=== PATIENT | male | born 1955 | race Caucasian/White ===

== ENCOUNTER 2024-01-05 02:51 | Inpatient (IN) | payer MEDICARE, MEDICAID ==
[~2024-01-05] VITALS: Ht 172.7 cm; Wt 94.3 kg
[2024-01-05 03:29] LABS: HEMATOCRIT 35.5 % (42.0-52.0); MEAN CORPUSCULAR HEMOGLOBIN 22.2 pg (28.0-32.0); MEAN CORPUSCULAR HGB CONC 31.1 g/dL (31.0-37.0); MEAN CORPUSCULAR VOLUME 71.3 fL (80.0-94.0); PLATELET 364 x1000/uL (130-400); RED BLOOD CELL COUNT 4.98 mill/uL (4.7-6.1); RED CELL DISTRIBUTION WIDTH 18.4 % (11.6-14.6); WHITE BLOOD COUNT 7.5 x1000/uL (4.5-11.0)
[2024-01-05 03:33] LABS: CHLORIDE 107 mEq/L (98-107); POTASSIUM 4.1 mEq/L (3.5-5.1); SODIUM 138 mEq/L (136-145)
[2024-01-05 03:34] LABS: CALCIUM 8.7 mg/dL (8.7-10.4); CARBON DIOXIDE 25 mEq/L (21-32)
[2024-01-05 03:39] LABS: CREATININE 1.1 mg/dL (0.6-1.3); GLUCOSE 143 mg/dL (70-105); UREA NITROGEN BLOOD 12 mg/dL (9-23)
[2024-01-05 03:41] LABS: ALANINE AMINOTRANSFERASE 16 IU/L (10-49); ALBUMIN 4.6 g/dL (3.2-4.8); ASPARTATE AMINOTRANSFERASE 23 IU/L (<34); BILIRUBIN TOTAL 0.7 mg/dL (0.1-1.0); PROTEIN TOTAL 7.5 g/dL (6.0-8.3)
[2024-01-05 04:00] LABS: TROPONIN I HIGH SENSITIVITY 480 ng/L (3.0-53)
[2024-01-05] MEDS: ASPIRIN 325MG EC TABLET PO ONE (04:43)
[2024-01-05 05:34] LABS: PARTIAL THROMBOPLASTIN TIME 28.8 sec (23.4-31.0); PROTHROMBIN TIME 11.6 sec (9.6-11.0)
[2024-01-05] MEDS: ENOXAPARIN 80MG/0.8ML SYR SUBCUT ONE (05:40)
[2024-01-05 06:05] LABS: CLARITY URINE CLEAR (CLEAR); COLOR URINE YELLOW (YELLOW); GLUCOSE URINE NEGATIVE (NEGATIVE); KETONES URINE NEGATIVE (NEGATIVE); LEUKOCYTE ESTERASE URINE NEGATIVE (NEGATIVE); NITRITE URINE NEGATIVE (NEGATIVE); OCCULT BLOOD URINE NEGATIVE (NEGATIVE); PROTEIN URINE 1+ (NEGATIVE); SPECIFIC GRAVITY URINE 1.016 (1.005-1.030); UROBILINOGEN URINE 0.2 E.U./dL (0.2-1.0)
[2024-01-05 06:37] LABS: BACTERIA URINE NONE SEEN; RBC URINE 0-2 /hpf (0-2); SQUAMOUS EPITHELIAL CELL URINE NONE SEEN /lpf (RARE/1+); WBC URINE 0-2 /hpf (0-2)
[2024-01-05 08:00] VITALS: BP 187/109; PULSE 61; RESP 18; TEMP 96.1
[2024-01-05 08:09] LABS: TROPONIN I HIGH SENSITIVITY 1007 ng/L (3.0-53)
[2024-01-05] MEDS ORDERED: [UNRECOGNIZED DRUG - OTHER] (08:17)
[2024-01-05] MEDS ORDERED: IRBE300T25 PO (08:17)
[2024-01-05] MEDS ORDERED: NITROGLYCERIN 0.4MG TABLET SL SL PRN (09:00)
[2024-01-05] MEDS ORDERED: ZOLPIDEM TARTRATE 5MG TABLET PO PRN (09:00)
[2024-01-05] MEDS ORDERED: TRAMADOL 50MG TABLET PO PRN (09:00)
[2024-01-05] MEDS: FAMOTIDINE 20MG TABLET PO SCH (09:18)
[2024-01-05] MEDS: LISINOPRIL 20MG TABLET PO SCH (09:18)
[2024-01-05] MEDS: AMLODIPINE 10MG TABLET PO SCH (09:18)
[2024-01-05 10:08] VITALS: BP 170/85; PULSE 51; RESP 18; TEMP 97.7
[2024-01-05 11:08] LABS: TROPONIN I HIGH SENSITIVITY 1658 ng/L (3.0-53)
[2024-01-05] MEDS: ASPIRIN 81MG TABLET PO SCH (11:13)
[2024-01-05 12:00] VITALS: BP 143/80; PULSE 54; RESP 18; TEMP 98.1
[2024-01-05] MEDS ORDERED: ACETAMINOPHEN 325MG TABLET PO PRN ×2 (12:00)
[2024-01-05] MEDS ORDERED: ONDANSETRON HCL 4MG/2ML INJ IV PRN (12:00)
[2024-01-05] MEDS ORDERED: CLONIDINE 0.1MG TABLET PO PRN (12:00)
[2024-01-05] MEDS ORDERED: GUAIFENESIN 200MG/10ML SUGAR FREE UDC PO PRN (12:00)
[2024-01-05] MEDS ORDERED: DEXTROSE 50% WATER 50ML SYRINGE IV PRN (12:15)
[2024-01-05 12:22] LABS: IRON 31 ug/dL (65-175)
[2024-01-05 12:25] LABS: TOTAL IRON BINDING CAPACITY 306 ug/dl (250-425)
[2024-01-05] MEDS: BLOOD SUGAR DIAGNOSTIC STRIP TEST SCH (12:28)
[2024-01-05 12:29] LABS: FERRITIN 7 ng/mL (22-322); FOLIC ACID (FOLATE) SERUM 12.78 ng/mL (>5.38)
[2024-01-05] MEDS: INSULIN LISPRO 100 UNITS/ML SUBCUT SCH (12:29)
[2024-01-05 12:30] LABS: VITAMIN B12 SERUM 452 pg/mL (211-911)
[2024-01-05] MEDS: ENOXAPARIN 100MG/ML SYR SUBCUT SCH (15:33)
[2024-01-05 16:00] VITALS: BP 127/76; PULSE 61; RESP 18; TEMP 97.7
[2024-01-05 17:14] LABS: CREATINE KINASE 167 IU/L (46-171)
[2024-01-05 17:41] LABS: TROPONIN I HIGH SENSITIVITY 2153 ng/L (3.0-53)
[2024-01-05 20:00] VITALS: BP 138/78; PULSE 52; RESP 18; TEMP 98.2
[2024-01-05] MEDS ORDERED: *PATIENT'S OWN MEDICATION STORAGE XX SCH (20:00)
[2024-01-05] MEDS: ATORVASTATIN CALCIUM 40MG TABLET PO SCH (21:07)
[2024-01-05 22:17] LABS: TROPONIN I HIGH SENSITIVITY 2040 ng/L (3.0-53)
[2024-01-06] VITALS: BP 120/80; PULSE 58; RESP 18; TEMP 98.2
[2024-01-06 04:00] VITALS: BP 144/88; PULSE 59; RESP 18; TEMP 98
[2024-01-06 06:30] LABS: CARBON DIOXIDE 24 mEq/L (21-32); CHLORIDE 108 mEq/L (98-107); POTASSIUM 3.9 mEq/L (3.5-5.1); SODIUM 139 mEq/L (136-145)
[2024-01-06 06:31] LABS: CALCIUM 8.7 mg/dL (8.7-10.4)
[2024-01-06 06:35] LABS: CREATININE 0.9 mg/dL (0.6-1.3); GLUCOSE 89 mg/dL (70-105)
[2024-01-06 06:36] LABS: TRIGLYCERIDE 175 mg/dL (0-150); UREA NITROGEN BLOOD 12 mg/dL (9-23)
[2024-01-06 06:37] LABS: ALANINE AMINOTRANSFERASE 18 IU/L (10-49); ALBUMIN 4.4 g/dL (3.2-4.8); ASPARTATE AMINOTRANSFERASE 23 IU/L (<34); LDL CHOLESTEROL 150 mg/dL (5-100)
[2024-01-06 06:38] LABS: BILIRUBIN TOTAL 0.9 mg/dL (0.1-1.0); CHOLESTEROL 184 mg/dL (<200); HDL CHOLESTEROL 36 mg/dL (>55); PHOSPHORUS 2.4 mg/dL (2.5-4.9); PROTEIN TOTAL 7.6 g/dL (6.0-8.3)
[2024-01-06 06:40] LABS: T4 FREE 1.08 ng/dL (0.89-1.76)
[2024-01-06 06:53] LABS: DIFFERENTIAL COMMENT 0; EOSINOPHILS % 3.6 % (0.0-5.0); HEMATOCRIT. 34.5 % (42.0-52.0); HEMOGLOBIN. 10.9 g/dL (14.0-18.0); LYMPHOCYTES % 50.8 % (20.0-50.0); MEAN CORPUSCULAR HEMOGLOBIN 22.8 pg (28.0-32.0); MEAN CORPUSCULAR HGB CONC 31.7 g/dL (31.0-37.0); MEAN CORPUSCULAR VOLUME 71.8 fL (80.0-94.0); MEAN PLATELET VOLUME 7.8 fl (7.4-10.4); MONOCYTES % 8.3 % (2.0-8.0); NEUTROPHILS % 36.3 % (40.0-76.0); PLATELET 329 x1000/uL (130-400); RED CELL DISTRIBUTION WIDTH 18.1 % (11.6-14.6)
[2024-01-06 07:58] LABS: BG CARBOXYHEMOGLOBIN 0.3 % (0.5-1.5); BG DEOXYHEMOGLOBIN 3.6 % (0.0-5.0); BG HCO3 ACT 22.3 mmol/L (22.0-26.0); BG METHEMOGLOBIN 0.1 % (0.0-1.5); BG OXYGEN SATURATION 96.4 % (92.0-98.5); BG PCO2 33.2 mmHg (35.0-45.0); BG PH 7.446 (7.350-7.450); BG SAMPLE SITE RIGHT RADIAL; BG TOTAL HEMOGLOBIN 12.9 g/dL (12.0-18.0); BG VENT MODE ROOM AIR
[2024-01-06 08:00] VITALS: BP 143/87; PULSE 50; RESP 18; TEMP 98.5
[2024-01-06] MEDS ORDERED: HEPARIN 1000 UNITS/ML 10ML ONE (08:06)
[2024-01-06] MEDS ORDERED: LIDOCAINE HCL 1% 20ML VIAL (Pyxis) INJ ONE (08:06)
[2024-01-06] MEDS ORDERED: IODIXANOL 320MG/ML 100 ML BOTTLE IV ONE (08:06)
[2024-01-06] MEDS ORDERED: VERAPAMIL HCL 2.5 MG/1 ML 2ML VIAL IV ONE (08:22)
[2024-01-06] MEDS ORDERED: DIPHENHYDRAMINE 50MG/ML VIAL ONE (08:46)
[2024-01-06] MEDS ORDERED: FENTANYL CITRATE/PF 50MCG/ML 2ML VIAL ONE (08:46)
[2024-01-06] MEDS ORDERED: MIDAZOLAM HCL 2 MG/2 ML VIAL ONE (08:47)
[2024-01-06] MEDS ORDERED: HYDRALAZINE 20MG/ML VIAL ONE (09:32)
[2024-01-06] MEDS ORDERED: ATROPINE SULFATE 1MG/10ML SYR IV PRN (10:15)
[2024-01-06] MEDS ORDERED: ACETAMINOPHEN 325MG TABLET PO PRN ×2 (10:15→12:00)
[2024-01-06] MEDS: FERROUS SULFATE 325MG TABLET PO SCH (12:40)
[2024-01-06 14:18] VITALS: BP 155/82; PULSE 61; RESP 18; TEMP 98.2
[2024-01-06 16:00] VITALS: BP 136/75; PULSE 52; RESP 15; TEMP 98.5
[2024-01-06] MEDS: POTASSIUM PHOSPHATE 10 MMOL in DEXT 5% WATER 246.6667 ML IV NR (19:54)
[2024-01-06 20:00] VITALS: BP 149/90; PULSE 50; RESP 16; TEMP 98.7
[2024-01-06] MEDS ORDERED: EPOETIN ALFA-EPBX 10,000 UNIT/ML VIAL SUBCUT NR (21:00)
[2024-01-07] VITALS (7 sets, daily range): BP systolic 134–161; BP diastolic 80–95; PULSE 38–63; RESP 14–22; TEMP 97.9–98.6
[2024-01-07 07:11] LABS: CARBON DIOXIDE 23 mEq/L (21-32); CHLORIDE 106 mEq/L (98-107); POTASSIUM 3.9 mEq/L (3.5-5.1); SODIUM 139 mEq/L (136-145)
[2024-01-07 07:12] LABS: CALCIUM 8.6 mg/dL (8.7-10.4)
[2024-01-07 07:17] LABS: GLUCOSE 88 mg/dL (70-105); UREA NITROGEN BLOOD 12 mg/dL (9-23)
[2024-01-07 10:37] LABS: *AMPHETAMINES SCREEN URINE NEGATIVE (NEGATIVE); *BARBITURATES SCREEN URINE NEGATIVE (NEGATIVE); *BENZODIAZEPINES SCREEN URINE PRESUMPTIVE POSITIVE (NEGATIVE)
[2024-01-07 10:38] LABS: *COCAINE SCREEN URINE NEGATIVE (NEGATIVE); CANNABINOID URINE SCREEN NEGATIVE (NEGATIVE); ECSTASY MDMA SCREEN URINE NEGATIVE (NEGATIVE); METHADONE URINE SCREEN NEGATIVE (NEGATIVE); OPIATES URINE SCREEN NEGATIVE (NEGATIVE); PHENCYCLIDINE URINE SCREEN NEGATIVE (NEGATIVE)
[2024-01-07] MEDS ORDERED: DIPHENHYDRAMINE 25MG CAPSULE PO PRN (21:00)
[2024-01-07] MEDS ORDERED: BISACODYL 10MG SUPP PR PRN (21:00)
[2024-01-07] MEDS: CHLORHEXIDINE GLUCONATE 4% EXTERNAL USE TOP SCH (21:16)
[2024-01-07] MEDS: DOCUSATE SODIUM 100MG CAPSULE PO SCH (21:17)
[2024-01-07] MEDS: ALLOPURINOL 300 MG TABLET PO SCH (21:17)
[2024-01-07] MEDS: ASCORBIC ACID 500 MG TABLET PO SCH (21:17)
[2024-01-08] VITALS (43 sets, daily range): BP systolic 96–165; BP diastolic 36–94; PULSE 49–111; RESP 14–33; TEMP 95.3–99.9
[2024-01-08] MEDS: HYDRALAZINE 20MG/ML VIAL IV PRN (04:54)
[2024-01-08] MEDS ORDERED: DEL NIDO CARDIOPLEGIA 1,000 ML (PREMIX) IV NR ×2 (06:00)
[2024-01-08] MEDS ORDERED: CEFAZOLIN 2GM/100ML 100 ML IV NR (06:00)
[2024-01-08] MEDS ORDERED: LR with VERAPAMIL, NTG, HEPARIN, SODIUM BICARBONATE (Soln) IV NR (06:00)
[2024-01-08] MEDS ORDERED: DOBUTAMINE 250 MG/250 ML PREMIX IV NR (06:00)
[2024-01-08] MEDS ORDERED: AMINOCAPROIC ACID 5,000 MG in SODIUM CHLORIDE 0.9% 250 ML IV NR (06:00)
[2024-01-08] MEDS ORDERED: NICARDIPINE 40MG/200ML PREMIX 200 ML IV NR (06:00)
[2024-01-08] MEDS ORDERED: NOREPINEPHRINE 8MG/250ML PMX 250 ML IV NR (06:00)
[2024-01-08] MEDS ORDERED: PAPAVERINE HCL 180MG in SODIUM CHLORIDE 0.9% 24ML IV NR (06:00)
[2024-01-08] MEDS ORDERED: INSULIN REGULAR 100 U/100 ML PREMIX IV NR (06:00)
[2024-01-08] MEDS ORDERED: POLYMYXIN B SULFATE 500000 UNITS/VIAL ONE (07:55)
[2024-01-08] MEDS ORDERED: THROMBIN (BOVINE) 5000 UNITS/VIAL TOP ONE (07:55)
[2024-01-08] MEDS ORDERED: SKIN ADHESIVE 0.7 GM EA TOP ONE (07:56)
[2024-01-08] MEDS ORDERED: HEPARIN 1000 UNITS/ML 10ML ONE (08:01)
[2024-01-08] MEDS ORDERED: SEVOFLURANE 250 ML LIQUID INH ONE (08:16)
[2024-01-08] MEDS ORDERED: DEXMEDETOMIDINE 400 MCG/100 ML 100 ML IV ONE (08:16)
[2024-01-08] MEDS: CHLORHEXIDINE GLUCONATE 4% EXTERNAL USE TOP SCH (09:00)
[2024-01-08] MEDS ORDERED: DEXTROSE 50% WATER 50ML SYRINGE IV PRN ×2 (12:30)
[2024-01-08] MEDS ORDERED: PROPOFOL 200MG/20ML VIAL IV ONE (12:31)
[2024-01-08] MEDS ORDERED: ROCURONIUM BROMIDE 10MG/ML VIAL 5ML IV ONE (12:31)
[2024-01-08] MEDS ORDERED: FENTANYL CITRATE/PF 50MCG/ML 2ML VIAL ONE (12:32)
[2024-01-08] MEDS ORDERED: CALCIUM CHLORIDE 1GM/10ML SYR IV ONE (12:59)
[2024-01-08] MEDS ORDERED: MAGNESIUM SULFATE 3 GM in DEXT 5% WATER 100 ML IV PRN (13:00)
[2024-01-08] MEDS ORDERED: GLYCOPYRROLATE 0.2 MG/ML 2ML VIAL ONE ×4 (13:09→15:59)
[2024-01-08] MEDS ORDERED: DEXAMETHASONE 4MG/ML 1ML VIAL ONE (15:22)
[2024-01-08] MEDS ORDERED: NEOSTIGMINE METHYLSULFATE 1MG/ML 10 ML VIAL ONE (15:22)
[2024-01-08] MEDS ORDERED: SODIUM BICARBONATE 8.4% 1 MEQ/ML 50ML SYR IV ONE (15:22)
[2024-01-08] MEDS ORDERED: ALBUTEROL 6.7GM HFA INHALER ONE (15:53)
[2024-01-08] MEDS ORDERED: MAGNESIUM 1 G PREMIX 100 ML IV PRN (16:00)
[2024-01-08] MEDS ORDERED: ALBUMIN HUMAN 25GM/100ML (25%) IV PRN (16:00)
[2024-01-08] MEDS ORDERED: ALBUMIN HUMAN 12.5G/250ML (5%) IV PRN (16:00)
[2024-01-08] MEDS ORDERED: SODIUM CHLORIDE 0.9% 500 ML IV PRN (16:00)
[2024-01-08] MEDS ORDERED: CALCIUM CHLORIDE 5,000 MG in DEXT 5% WATER 500 ML IV PRN (16:00)
[2024-01-08] MEDS: BLOOD SUGAR DIAGNOSTIC STRIP TEST SCH (16:00)
[2024-01-08] MEDS ORDERED: ACETAMINOPHEN 325MG TABLET PO PRN (16:00)
[2024-01-08] MEDS: EPINEPHRINE 5 MG in DEXT 5% WATER 250 ML IV NR (16:09)
[2024-01-08] MEDS: DOPAMINE 400MG/250ML PREMIX 250 ML IV NR (16:10)
[2024-01-08] MEDS: INSULIN REGULAR 100U/100ML PMX 100 ML IV SCH (16:14)
[2024-01-08] MEDS: DEXT 5%/0.45% NACL 1000ML 1,000 ML IV SCH (16:24)
[2024-01-08 16:27] LABS: BASOPHILS % 0.5 % (0.0-2.0); DIFFERENTIAL COMMENT 0; EOSINOPHILS % 0.4 % (0.0-5.0); HEMATOCRIT. 29.6 % (42.0-52.0); HEMOGLOBIN. 9.2 g/dL (14.0-18.0); LYMPHOCYTES % 17.9 % (20.0-50.0); MEAN CORPUSCULAR HEMOGLOBIN 22.8 pg (28.0-32.0); MEAN CORPUSCULAR HGB CONC 31.1 g/dL (31.0-37.0); MEAN CORPUSCULAR VOLUME 73.3 fL (80.0-94.0); MEAN PLATELET VOLUME 7.6 fl (7.4-10.4); MONOCYTES % 2.5 % (2.0-8.0); NEUTROPHILS % 78.7 % (40.0-76.0); PLATELET 321 x1000/uL (130-400); RED BLOOD CELL COUNT 4.03 mill/uL (4.7-6.1); RED CELL DISTRIBUTION WIDTH 17.6 % (11.6-14.6); WHITE BLOOD COUNT 18.9 x1000/uL (4.5-11.0)
[2024-01-08] MEDS: IPRATROPIUM/ALBUTEROL 0.5-3(2.5)MG/3ML NEB HHN PRN (16:30)
[2024-01-08 16:34] LABS: CHLORIDE 102 mEq/L (98-107); SODIUM 142 mEq/L (136-145)
[2024-01-08 16:35] LABS: CARBON DIOXIDE 22 mEq/L (21-32)
[2024-01-08 16:37] LABS: BG BASE EXCESS -4.9 mmol/L (-2.0-2.0); BG CARBOXYHEMOGLOBIN 0.4 % (0.5-1.5); BG DEOXYHEMOGLOBIN 7.9 % (0.0-5.0); BG FRACTION INSPIRED OXYGEN 100; BG HCO3 ACT 20.7 mmol/L (22.0-26.0); BG METHEMOGLOBIN 0.3 % (0.0-1.5); BG OXYHEMOGLOBIN 91.4 % (94.0-97.0); BG PCO2 40.8 mmHg (35.0-45.0); BG PH 7.324 (7.350-7.450); BG PO2 71.9 mmHg (75.0-100.0); BG SAMPLE SITE ALINE; BG TOTAL HEMOGLOBIN 10.1 g/dL (12.0-18.0); BG VENT MODE MASK - NRB
[2024-01-08 16:40] LABS: GLUCOSE 205 mg/dL (70-105); UREA NITROGEN BLOOD 12 mg/dL (9-23)
[2024-01-08 16:45] LABS: CREATININE 1.4 mg/dL (0.6-1.3); POTASSIUM 2.8 mEq/L (3.5-5.1)
[2024-01-08] MEDS ORDERED: GLYCOPYRROLATE 0.2 MG/ML 2ML VIAL IV PRN (16:45)
[2024-01-08] MEDS: SODIUM BICARBONATE 8.4% 1 MEQ/ML 50ML SYR IV NR (16:47)
[2024-01-08] MEDS: KCL 10MEQ/50ML PREMIX 100 ML IV PRN (16:47)
[2024-01-08] MEDS: DOCUSATE SODIUM 100MG CAPSULE PO SCH (17:00)
[2024-01-08] MEDS: BACITRACIN 14GM TUBE TOP SCH (17:00)
[2024-01-08] MEDS: DEXMEDETOMIDINE 400 MCG in SODIUM CHLORIDE 0.9% 100 ML IV PRN (17:00)
[2024-01-08] MEDS: NALOXONE HCL 0.4MG/ML VIAL IV PRN (17:10)
[2024-01-08] MEDS ORDERED: FLUMAZENIL 0.1 MG/ML 5ML VIAL IV PRN (17:15)
[2024-01-08] MEDS: KCL 10MEQ/50ML PREMIX 200 ML IV PRN (17:35)
[2024-01-08] MEDS: CEFAZOLIN 1000MG PREMIX 50 ML IV SCH (17:36)
[2024-01-08] MEDS: KETOROLAC 30MG/ML VIAL IV PRN (17:46)
[2024-01-08] MEDS ORDERED: DOPAMINE 400MG/250ML PREMIX 250 ML IV PRN (18:30)
[2024-01-08 18:59] LABS: BG BASE EXCESS -7.6 mmol/L (-2.0-2.0); BG CARBOXYHEMOGLOBIN 0.3 % (0.5-1.5); BG DEOXYHEMOGLOBIN 3.3 % (0.0-5.0); BG FRACTION INSPIRED OXYGEN 100; BG HCO3 ACT 16.8 mmol/L (22.0-26.0); BG METHEMOGLOBIN 0.4 % (0.0-1.5); BG OXYGEN SATURATION 96.7 % (92.0-98.5); BG PCO2 30.5 mmHg (35.0-45.0); BG PH 7.359 (7.350-7.450); BG PO2 96.7 mmHg (75.0-100.0); BG SAMPLE SITE ALINE; BG TOTAL HEMOGLOBIN 10.2 g/dL (12.0-18.0); BG VENT MODE MASK - NRB
[2024-01-08] MEDS: MIDODRINE HCL 5MG TABLET PO SCH (19:38)
[2024-01-08] MEDS: ALBUMIN HUMAN 25GM/100ML (25%) IV NR (19:39)
[2024-01-08] MEDS: OXYCODONE HCL/ACETAMINOPHEN 5/325MG TABLET PO PRN (19:46)
[2024-01-08] MEDS: ALBUMIN HUMAN 12.5G/250ML (5%) IV NR (20:28)
[2024-01-08] MEDS: IPRATROPIUM/ALBUTEROL 0.5-3(2.5)MG/3ML NEB HHN SCH (20:46)
[2024-01-08] MEDS: EPINEPHRINE 5 MG in DEXT 5% WATER 245 ML IV SCH (21:31)
[2024-01-08] MEDS: ASPIRIN 81MG TABLET PO SCH (21:38)
[2024-01-08] MEDS: CLOPIDOGREL 75MG TABLET PO SCH (21:39)
[2024-01-08 23:01] LABS: HEMOGLOBIN 8.3 g/dL (14.0-18.0); MEAN CORPUSCULAR HEMOGLOBIN 22.6 pg (28.0-32.0); MEAN CORPUSCULAR HGB CONC 30.9 g/dL (31.0-37.0); MEAN CORPUSCULAR VOLUME 73.1 fL (80.0-94.0); PLATELET 300 x1000/uL (130-400); RED BLOOD CELL COUNT 3.69 mill/uL (4.7-6.1); WHITE BLOOD COUNT 11.9 x1000/uL (4.5-11.0)
[2024-01-08 23:05] LABS: CHLORIDE 105 mEq/L (98-107); SODIUM 144 mEq/L (136-145)
[2024-01-08 23:06] LABS: BG BASE EXCESS -8.4 mmol/L (-2.0-2.0); BG CARBOXYHEMOGLOBIN 0.2 % (0.5-1.5); BG DEOXYHEMOGLOBIN 6.4 % (0.0-5.0); BG FRACTION INSPIRED OXYGEN 50; BG HCO3 ACT 15.6 mmol/L (22.0-26.0); BG METHEMOGLOBIN 0.1 % (0.0-1.5); BG OXYGEN SATURATION 93.6 % (92.0-98.5); BG OXYHEMOGLOBIN 93.3 % (94.0-97.0); BG PCO2 27.1 mmHg (35.0-45.0); BG PH 7.377 (7.350-7.450); BG PO2 75.5 mmHg (75.0-100.0); BG SAMPLE SITE ALINE; BG TOTAL HEMOGLOBIN 9.4 g/dL (12.0-18.0); BG VENT MODE MASK - SIMPLE
[2024-01-08 23:06] LABS: CALCIUM 9.9 mg/dL (8.7-10.4); CARBON DIOXIDE 18 mEq/L (21-32)
[2024-01-08 23:11] LABS: UREA NITROGEN BLOOD 17 mg/dL (9-23)
[2024-01-08 23:16] LABS: CREATININE 1.9 mg/dL (0.6-1.3); GLUCOSE 384 mg/dL (70-105); POTASSIUM 2.5 mEq/L (3.5-5.1)
[2024-01-08 23:19] LABS: PHOSPHORUS < 0.3 mg/dL (2.5-4.9)
[2024-01-09] VITALS (115 sets, daily range): BP systolic 72–143; BP diastolic 41–73; PULSE 60–124; RESP 18–34; TEMP 98–101; O2SAT 95
[2024-01-09] MEDS: DOPAMINE 400MG/250ML PREMIX 250 ML IV PRN (00:16)
[2024-01-09] MEDS: SODIUM BICARBONATE 8.4% 1 MEQ/ML 50ML SYR IV NR (01:14)
[2024-01-09] MEDS: ONDANSETRON HCL 4MG/2ML INJ IV PRN (01:18)
[2024-01-09] MEDS: SODIUM CHLORIDE 0.45% 1,000 ML IV SCH (01:45)
[2024-01-09] MEDS: CEFAZOLIN 1000MG PREMIX 50 ML IV SCH (01:46)
[2024-01-09] MEDS: FUROSEMIDE 40MG/4ML VIAL IVP NR ×2 (03:38→18:16)
[2024-01-09] MEDS: MAGNESIUM 1 G PREMIX 100 ML IV PRN (03:59)
[2024-01-09] MEDS ORDERED: EPINEPHRINE 5 MG in DEXT 5% WATER 245 ML IV PRN (08:00)
[2024-01-09] MEDS ORDERED: EPINEPHRINE 5 MG in DEXT 5% WATER 245 ML IV SCH (08:15)
[2024-01-09 08:29] LABS: HEMATOCRIT. 30.3 % (42.0-52.0); HEMOGLOBIN. 9.6 g/dL (14.0-18.0); MEAN CORPUSCULAR HEMOGLOBIN 23.4 pg (28.0-32.0); MEAN CORPUSCULAR HGB CONC 31.8 g/dL (31.0-37.0); MEAN CORPUSCULAR VOLUME 73.6 fL (80.0-94.0); MEAN PLATELET VOLUME 7.8 fl (7.4-10.4); PLATELET 253 x1000/uL (130-400); RED BLOOD CELL COUNT 4.11 mill/uL (4.7-6.1); RED CELL DISTRIBUTION WIDTH 19.2 % (11.6-14.6); WHITE BLOOD COUNT 15.9 x1000/uL (4.5-11.0)
[2024-01-09 08:34] LABS: DIFFERENTIAL COMMENT 1
[2024-01-09 08:37] LABS: CHLORIDE 109 mEq/L (98-107); SODIUM 147 mEq/L (136-145)
[2024-01-09 08:38] LABS: CALCIUM 9.6 mg/dL (8.7-10.4); CARBON DIOXIDE 25 mEq/L (21-32)
[2024-01-09 08:40] LABS: INR 1.2; PROTHROMBIN TIME 13.4 sec (9.6-11.0)
[2024-01-09 08:42] LABS: CREATININE 1.8 mg/dL (0.6-1.3)
[2024-01-09 08:43] LABS: UREA NITROGEN BLOOD 22 mg/dL (9-23)
[2024-01-09 08:46] LABS: GLUCOSE 194 mg/dL (70-105); POTASSIUM 2.7 mEq/L (3.5-5.1)
[2024-01-09 09:06] LABS: BG BASE EXCESS 0.3 mmol/L (-2.0-2.0); BG CARBOXYHEMOGLOBIN 0.1 % (0.5-1.5); BG DEOXYHEMOGLOBIN 4.2 % (0.0-5.0); BG FRACTION INSPIRED OXYGEN 60; BG HCO3 ACT 24.1 mmol/L (22.0-26.0); BG METHEMOGLOBIN 0.3 % (0.0-1.5); BG OXYGEN SATURATION 95.8 % (92.0-98.5); BG OXYHEMOGLOBIN 95.4 % (94.0-97.0); BG PCO2 35.4 mmHg (35.0-45.0); BG SAMPLE SITE ALINE; BG TOTAL HEMOGLOBIN 10.3 g/dL (12.0-18.0); BG VENT MODE MASK - SIMPLE
[2024-01-09] MEDS: FAMOTIDINE 20MG/2ML VIAL IV SCH (09:25)
[2024-01-09 11:36] LABS: PLATELET ESTIMATE NORMAL
[2024-01-09] MEDS: MAGNESIUM 2 G PREMIX 50 ML IV PRN (11:36)
[2024-01-09 11:41] LABS: MICROCYTOSIS 1+
[2024-01-09 11:49] LABS: PHOSPHORUS 2.3 mg/dL (2.5-4.9)
[2024-01-09] MEDS: OXYCODONE HCL/ACETAMINOPHEN 5/325MG TABLET PO PRN (14:30)
[2024-01-09] MEDS: EPINEPHRINE 5 MG in DEXT 5% WATER 245 ML IV PRN (16:38)
[2024-01-09 19:54] LABS: HEMATOCRIT. 31.1 % (42.0-52.0); HEMOGLOBIN. 10.1 g/dL (14.0-18.0); MEAN CORPUSCULAR HEMOGLOBIN 24.3 pg (28.0-32.0); MEAN CORPUSCULAR HGB CONC 32.6 g/dL (31.0-37.0); MEAN CORPUSCULAR VOLUME 74.7 fL (80.0-94.0); PLATELET 225 x1000/uL (130-400); RED BLOOD CELL COUNT 4.17 mill/uL (4.7-6.1); RED CELL DISTRIBUTION WIDTH 19.7 % (11.6-14.6); WHITE BLOOD COUNT 17.7 x1000/uL (4.5-11.0)
[2024-01-09 19:56] LABS: DIFFERENTIAL COMMENT 1
[2024-01-09 19:59] LABS: CARBON DIOXIDE 25 mEq/L (21-32); CHLORIDE 107 mEq/L (98-107); POTASSIUM 4.3 mEq/L (3.5-5.1); SODIUM 142 mEq/L (136-145)
[2024-01-09 20:00] LABS: CALCIUM 8.7 mg/dL (8.7-10.4)
[2024-01-09 20:05] LABS: CREATININE 1.6 mg/dL (0.6-1.3); GLUCOSE 152 mg/dL (70-105); UREA NITROGEN BLOOD 25 mg/dL (9-23)
[2024-01-09 20:07] LABS: PHOSPHORUS 5.5 mg/dL (2.5-4.9)
[2024-01-09 20:41] LABS: INR 1.2
[2024-01-09 20:49] LABS: HYPOCHROMASIA 1+; PLATELET ESTIMATE NORMAL
[2024-01-09 20:50] LABS: ANISOCYTOSIS 1+; OVALOCYTES 1+
[2024-01-09 20:51] LABS: MICROCYTOSIS 1+
[2024-01-10] VITALS (104 sets, daily range): BP systolic 88–134; BP diastolic 50–81; PULSE 54–74; RESP 12–28; TEMP 99.1–99.8; O2SAT 93
[2024-01-10] MEDS: MAGNESIUM/ALUMINUM HYDROXIDE/SIMETHICONE 30ML UDC PO PRN ×2 (03:10→12:12)
[2024-01-10 06:10] LABS: BASOPHILS % 0.1 % (0.0-2.0); DIFFERENTIAL COMMENT 0; HEMATOCRIT. 31.8 % (42.0-52.0); HEMOGLOBIN. 10.2 g/dL (14.0-18.0); LYMPHOCYTES % 7.5 % (20.0-50.0); MEAN CORPUSCULAR HEMOGLOBIN 24.3 pg (28.0-32.0); MEAN CORPUSCULAR HGB CONC 32.1 g/dL (31.0-37.0); MEAN CORPUSCULAR VOLUME 75.7 fL (80.0-94.0); MEAN PLATELET VOLUME 8.3 fl (7.4-10.4); MONOCYTES % 9.5 % (2.0-8.0); NEUTROPHILS % 82.9 % (40.0-76.0); PLATELET 231 x1000/uL (130-400)
[2024-01-10 06:29] LABS: CARBON DIOXIDE 26 mEq/L (21-32); CHLORIDE 105 mEq/L (98-107); POTASSIUM 4.5 mEq/L (3.5-5.1); SODIUM 141 mEq/L (136-145)
[2024-01-10 06:30] LABS: CALCIUM 8.9 mg/dL (8.7-10.4)
[2024-01-10 06:34] LABS: CREATININE 1.8 mg/dL (0.6-1.3); GLUCOSE 113 mg/dL (70-105)
[2024-01-10 06:35] LABS: UREA NITROGEN BLOOD 32 mg/dL (9-23)
[2024-01-10] MEDS ORDERED: DEXTROSE 50% WATER 50ML SYRINGE IV PRN (10:30)
[2024-01-10] MEDS: FUROSEMIDE 40MG/4ML VIAL IVP NR (10:49)
[2024-01-10] MEDS: BLOOD SUGAR DIAGNOSTIC STRIP TEST SCH (12:50)
[2024-01-10] MEDS: INSULIN LISPRO 100 UNITS/ML SUBCUT SCH (13:11)
[2024-01-10] MEDS: MIDODRINE HCL 5MG TABLET PO SCH (13:11)
[2024-01-10] MEDS ORDERED: NALOXONE HCL 0.4MG/ML VIAL IV PRN (14:15)
[2024-01-11] VITALS (94 sets, daily range): BP systolic 98–145; BP diastolic 52–98; PULSE 47–97; RESP 12–28; TEMP 98.4–98.8; O2SAT 96
[2024-01-11] MEDS: GLYCOPYRROLATE 0.2 MG/ML 2ML VIAL IV PRN (03:57)
[2024-01-11 04:35] LABS: BASOPHILS % 0.1 % (0.0-2.0); DIFFERENTIAL COMMENT 0; HEMATOCRIT. 31.1 % (42.0-52.0); HEMOGLOBIN. 9.9 g/dL (14.0-18.0); LYMPHOCYTES % 10.2 % (20.0-50.0); MEAN CORPUSCULAR HEMOGLOBIN 24.4 pg (28.0-32.0); MEAN CORPUSCULAR HGB CONC 31.8 g/dL (31.0-37.0); MEAN CORPUSCULAR VOLUME 76.5 fL (80.0-94.0); MEAN PLATELET VOLUME 8.2 fl (7.4-10.4); MONOCYTES % 8.6 % (2.0-8.0); NEUTROPHILS % 81.1 % (40.0-76.0); PLATELET 202 x1000/uL (130-400); RED BLOOD CELL COUNT 4.06 mill/uL (4.7-6.1); RED CELL DISTRIBUTION WIDTH 21.5 % (11.6-14.6); WHITE BLOOD COUNT 15.9 x1000/uL (4.5-11.0)
[2024-01-11 04:46] LABS: CHLORIDE 102 mEq/L (98-107); SODIUM 136 mEq/L (136-145)
[2024-01-11 04:47] LABS: CARBON DIOXIDE 27 mEq/L (21-32)
[2024-01-11 04:48] LABS: CALCIUM 8.1 mg/dL (8.7-10.4)
[2024-01-11 04:52] LABS: CREATININE 1.6 mg/dL (0.6-1.3); GLUCOSE 173 mg/dL (70-105)
[2024-01-11 04:53] LABS: UREA NITROGEN BLOOD 42 mg/dL (9-23)
[2024-01-11 04:59] LABS: POTASSIUM 5.4 mEq/L (3.5-5.1)
[2024-01-11] MEDS: FUROSEMIDE 40MG/4ML VIAL IVP NR (07:40)
[2024-01-11] MEDS: SODIUM POLYSTYRENE SULFONATE 15 G/60 ML BOT PO NR (07:40)
[2024-01-11 09:04] LABS: BASOPHILS % 0.1 % (0.0-2.0); DIFFERENTIAL COMMENT 0; HEMATOCRIT. 33.8 % (42.0-52.0); HEMOGLOBIN. 10.7 g/dL (14.0-18.0); LYMPHOCYTES % 10.1 % (20.0-50.0); MEAN CORPUSCULAR HEMOGLOBIN 24.5 pg (28.0-32.0); MEAN CORPUSCULAR HGB CONC 31.7 g/dL (31.0-37.0); MEAN CORPUSCULAR VOLUME 77.3 fL (80.0-94.0); MEAN PLATELET VOLUME 8.3 fl (7.4-10.4); MONOCYTES % 6.4 % (2.0-8.0); NEUTROPHILS % 83.4 % (40.0-76.0); PLATELET 215 x1000/uL (130-400); RED BLOOD CELL COUNT 4.37 mill/uL (4.7-6.1); RED CELL DISTRIBUTION WIDTH 20.9 % (11.6-14.6); WHITE BLOOD COUNT 15.5 x1000/uL (4.5-11.0)
[2024-01-11 12:52] LABS: CHLORIDE 104 mEq/L (98-107); SODIUM 135 mEq/L (136-145)
[2024-01-11 12:53] LABS: CARBON DIOXIDE 22 mEq/L (21-32)
[2024-01-11 12:54] LABS: CALCIUM 8.6 mg/dL (8.7-10.4)
[2024-01-11 12:58] LABS: CREATININE 1.8 mg/dL (0.6-1.3); GLUCOSE 163 mg/dL (70-105); UREA NITROGEN BLOOD 42 mg/dL (9-23)
[2024-01-11 13:01] LABS: PHOSPHORUS 3.2 mg/dL (2.5-4.9)
[2024-01-11] MEDS: BUMETANIDE 2.5MG/10ML VIAL IV NR (14:45)
[2024-01-11] MEDS ORDERED: CALCIUM CHLORIDE 1GM/10ML SYR IV ONE (23:45)
[2024-01-12] VITALS (93 sets, daily range): BP systolic 109–189; BP diastolic 71–165; PULSE 48–121; RESP 13–25; TEMP 98.2–98.7; O2SAT 93–96
[2024-01-12] MEDS: CALCIUM CHLORIDE 3,000 MG in DEXT 5% WATER 250 ML IV PRN
[2024-01-12 05:43] LABS: BASOPHILS % 0.1 % (0.0-2.0); DIFFERENTIAL COMMENT 0; HEMATOCRIT. 33.2 % (42.0-52.0); HEMOGLOBIN. 10.5 g/dL (14.0-18.0); LYMPHOCYTES % 18.2 % (20.0-50.0); MEAN CORPUSCULAR HEMOGLOBIN 24.6 pg (28.0-32.0); MEAN CORPUSCULAR HGB CONC 31.7 g/dL (31.0-37.0); MEAN CORPUSCULAR VOLUME 77.5 fL (80.0-94.0); MEAN PLATELET VOLUME 8.3 fl (7.4-10.4); NEUTROPHILS % 74.7 % (40.0-76.0); PLATELET 210 x1000/uL (130-400); RED BLOOD CELL COUNT 4.28 mill/uL (4.7-6.1); RED CELL DISTRIBUTION WIDTH 21.2 % (11.6-14.6); WHITE BLOOD COUNT 11.9 x1000/uL (4.5-11.0)
[2024-01-12 05:55] LABS: CALCIUM 10.1 mg/dL (8.7-10.4); POTASSIUM 4.2 mEq/L (3.5-5.1)
[2024-01-12 06:00] LABS: CREATININE 1.6 mg/dL (0.6-1.3)
[2024-01-12 06:01] LABS: PHOSPHORUS 4.2 mg/dL (2.5-4.9)
[2024-01-12] MEDS: MAGNESIUM 2 G PREMIX 50 ML IV PRN (07:04)
[2024-01-12] MEDS: METOLAZONE 5MG TABLET PO NR (08:05)
[2024-01-12] MEDS: BUMETANIDE 2.5MG/10ML VIAL IV NR (09:19)
[2024-01-12] MEDS ORDERED: AMIODARONE HCL 200 MG TABLET PO SCH ×2 (13:30)
[2024-01-12] MEDS: AMIODARONE HCL 200 MG TABLET PO SCH (13:37)
[2024-01-12] MEDS: METOPROLOL TARTRATE 25MG TABLET PO SCH (13:56)
[2024-01-12] MEDS: MAGNESIUM 2 G PREMIX 50 ML IV NR (16:23)
[2024-01-12] MEDS: AMIODARONE 150MG/100ML 100 ML IV NR (16:24)
[2024-01-12] MEDS: AMIODARONE HCL 900 MG in DEXT 5% WATER 482 ML IV PRN (17:02)
[2024-01-13] VITALS (94 sets, daily range): BP systolic 124–164; BP diastolic 70–98; PULSE 47–71; RESP 12–27; TEMP 97.6–98.1; O2SAT 95–96
[2024-01-13 05:39] LABS: BASOPHILS % 0.1 % (0.0-2.0); DIFFERENTIAL COMMENT 0; EOSINOPHILS % 0.9 % (0.0-5.0); HEMATOCRIT. 34.1 % (42.0-52.0); LYMPHOCYTES % 29.9 % (20.0-50.0); MEAN CORPUSCULAR HEMOGLOBIN 24.5 pg (28.0-32.0); MEAN CORPUSCULAR HGB CONC 32.3 g/dL (31.0-37.0); MEAN PLATELET VOLUME 8.1 fl (7.4-10.4); MONOCYTES % 10.7 % (2.0-8.0); NEUTROPHILS % 58.4 % (40.0-76.0); PLATELET 218 x1000/uL (130-400); RED BLOOD CELL COUNT 4.49 mill/uL (4.7-6.1); RED CELL DISTRIBUTION WIDTH 21.1 % (11.6-14.6); WHITE BLOOD COUNT 9.7 x1000/uL (4.5-11.0)
[2024-01-13 05:50] LABS: CHLORIDE 98 mEq/L (98-107); POTASSIUM 3.1 mEq/L (3.5-5.1); SODIUM 137 mEq/L (136-145)
[2024-01-13 05:51] LABS: CALCIUM 9.9 mg/dL (8.7-10.4); CARBON DIOXIDE 28 mEq/L (21-32)
[2024-01-13 05:56] LABS: CREATININE 1.2 mg/dL (0.6-1.3); GLUCOSE 114 mg/dL (70-105); UREA NITROGEN BLOOD 29 mg/dL (9-23)
[2024-01-13] MEDS ORDERED: MAGNESIUM 2 G PREMIX 50 ML IV ONE (07:45)
[2024-01-13] MEDS: FUROSEMIDE 40MG/4ML VIAL IVP NR (12:42)
[2024-01-13 13:25] LABS: POTASSIUM 3.5 mEq/L (3.5-5.1)
[2024-01-13] MEDS: MAGNESIUM SULFATE 3 GM in DEXT 5% WATER 100 ML IV PRN (14:59)
[2024-01-13] MEDS: KCL 20MEQ/100ML PREMIX 100 ML IV SCH (15:16)
[2024-01-13 23:34] LABS: CALCIUM 8.8 mg/dL (8.7-10.4); CARBON DIOXIDE 31 mEq/L (21-32); CHLORIDE 99 mEq/L (98-107); SODIUM 137 mEq/L (136-145)
[2024-01-13 23:39] LABS: CREATININE 1.2 mg/dL (0.6-1.3)
[2024-01-13 23:40] LABS: GLUCOSE 107 mg/dL (70-105); UREA NITROGEN BLOOD 29 mg/dL (9-23)
[2024-01-14] VITALS (48 sets, daily range): BP systolic 118–182; BP diastolic 61–99; PULSE 46–60; RESP 9–29; O2SAT 94
[2024-01-14 05:20] LABS: BASOPHILS % 0.2 % (0.0-2.0); DIFFERENTIAL COMMENT 0; EOSINOPHILS % 2.7 % (0.0-5.0); HEMOGLOBIN. 11.4 g/dL (14.0-18.0); LYMPHOCYTES % 23.8 % (20.0-50.0); MEAN CORPUSCULAR HEMOGLOBIN 24.6 pg (28.0-32.0); MEAN CORPUSCULAR HGB CONC 32.5 g/dL (31.0-37.0); MEAN CORPUSCULAR VOLUME 75.7 fL (80.0-94.0); MEAN PLATELET VOLUME 8.4 fl (7.4-10.4); MONOCYTES % 12.3 % (2.0-8.0); PLATELET 252 x1000/uL (130-400); RED BLOOD CELL COUNT 4.63 mill/uL (4.7-6.1); RED CELL DISTRIBUTION WIDTH 21.2 % (11.6-14.6)
[2024-01-14 05:22] LABS: CHLORIDE 98 mEq/L (98-107); POTASSIUM 3.5 mEq/L (3.5-5.1); SODIUM 135 mEq/L (136-145)
[2024-01-14 05:23] LABS: CALCIUM 8.6 mg/dL (8.7-10.4); CARBON DIOXIDE 29 mEq/L (21-32)
[2024-01-14 05:28] LABS: CREATININE 1.2 mg/dL (0.6-1.3); GLUCOSE 139 mg/dL (70-105); UREA NITROGEN BLOOD 23 mg/dL (9-23)
[2024-01-14] MEDS: KCL 10MEQ/50ML PREMIX 150 ML IV PRN (06:56)
[2024-01-14] MEDS ORDERED: LIP40 PO (10:48)
[2024-01-14] MEDS ORDERED: MIDO5TAB4 PO (10:48)
[2024-01-14] MEDS ORDERED: FERR-63 PO (10:48)
[2024-01-14] MEDS ORDERED: AMI2 MT (10:48)
[2024-01-14] MEDS ORDERED: FAMO-135 MT (10:48)
[2024-01-14] MEDS ORDERED: ASPI-1160 PO (10:48)
[2024-01-14] MEDS ORDERED: CLOP-31 PO (10:48)
[2024-01-14] MEDS ORDERED: SENN-257 MT (10:48)
[2024-01-15] MEDS ORDERED: AMIODARONE HCL 200 MG TABLET PO SCH (09:00)
== END 2024-01-14 15:30 | disposition home health service (06) | DRG 233 ==
LOC: ER 03:44 → 8WST 05:24 → 3WST 01-06 14:14 → CVICU 01-08 13:04
PROVIDERS: ADMIT Internal Medicine; ATTEND Internal Medicine
PROC: B2111ZZ Fluoroscopy of Multiple Coronary Arteries using Low Osmolar Contrast (ICD-10-PCS; principal; 2024-01-06)
PROC: 4A023N7 Measurement of Cardiac Sampling and Pressure, Left Heart, Percutaneous Approach (ICD-10-PCS; 2024-01-06)
PROC: 02100Z9 Bypass Coronary Artery, One Artery from Left Internal Mammary, Open Approach (ICD-10-PCS; 2024-01-08)
PROC: 021309W Bypass Coronary Artery, Four or More Arteries from Aorta with Autologous Venous Tissue, Open Approach (ICD-10-PCS; 2024-01-08)
PROC: 06BP4ZZ Excision of Right Saphenous Vein, Percutaneous Endoscopic Approach (ICD-10-PCS; 2024-01-08)
PROC: 5A02210 Assistance with Cardiac Output using Balloon Pump, Continuous (ICD-10-PCS; 2024-01-08)
PROC: 5A1221Z Performance of Cardiac Output, Continuous (ICD-10-PCS; 2024-01-08)
PROC: 30233N1 Transfusion of Nonautologous Red Blood Cells into Peripheral Vein, Percutaneous Approach (ICD-10-PCS; 2024-01-09)
DX: I21.4 Non-ST elevation (NSTEMI) myocardial infarction (principal); I50.43 Acute on chronic combined systolic (congestive) and diastolic (congestive) heart failure; R57.0 Cardiogenic shock; I16.1 Hypertensive emergency; N17.9 Acute kidney failure, unspecified; I11.0 Hypertensive heart disease with heart failure; E78.5 Hyperlipidemia, unspecified; I25.119 Atherosclerotic heart disease of native coronary artery with unspecified angina pectoris; E11.649 Type 2 diabetes mellitus with hypoglycemia without coma; D50.9 Iron deficiency anemia, unspecified; D72.829 Elevated white blood cell count, unspecified; E66.9 Obesity, unspecified; E83.39 Other disorders of phosphorus metabolism; E86.9 Volume depletion, unspecified; E87.5 Hyperkalemia; Z68.31 Body mass index [BMI] 31.0-31.9, adult; R00.1 Bradycardia, unspecified; K44.9 Diaphragmatic hernia without obstruction or gangrene; Z79.02 Long term (current) use of antithrombotics/antiplatelets; Z79.82 Long term (current) use of aspirin; Z79.899 Other long term (current) drug therapy
CPT/HCPCS: 36415; 36600; 71045; 80048; 80053; 80061; 80305; 81003; 82375; 82550; 82607; 82728; 82746; 82805; 82962; 83036; 83540; 83550; 83605; 83735; 83880; 84100; 84132; 84145; 84439; 84443; 84484; 85025; 85027; 85347; 85384; 86850; 86880; 86900; 86920; 87070; 93005; 93306; 93458; 93880; 93970; 94640; 97110; 97116; 97161; 97164; 97166; 97530; 97535; 99285; C1729; C1751; C1758; C1769; C1887; C1893; J0282; J0360; J0690; J1100; J1200; J1250; J1265; J1644; J1650; J1815; J1885; J1940; J2250; J2310; J2405; J2440; J2704; J2710; J3010; J3475; J3480; J3490; J7060; L3908; P9016; P9047; Q9957; Q9967; C1713

== ENCOUNTER 2024-02-07 01:28 | Inpatient (IN) | payer MEDICARE, MEDICAID ==
[~2024-02-07] VITALS: Ht 175.3 cm; Wt 94.9 kg
[~2024-02-07 01:28] MED LIST: AMI2 MT; APIX5TAB MT; ASPI-1160 PO; CLOP-31 PO; FAMO-135 MT; FERR-63 PO; LIP40 PO; MIDO5TAB4 PO; SENN-257 MT
[2024-02-07 02:11] LABS: CHLORIDE 107 mEq/L (98-107); POTASSIUM 4.1 mEq/L (3.5-5.1); SODIUM 138 mEq/L (136-145)
[2024-02-07 02:12] LABS: CALCIUM 8.7 mg/dL (8.7-10.4); CARBON DIOXIDE 23 mEq/L (21-32)
[2024-02-07 02:17] LABS: GLUCOSE 106 mg/dL (70-105); UREA NITROGEN BLOOD 14 mg/dL (9-23)
[2024-02-07 02:19] LABS: ALANINE AMINOTRANSFERASE 14 IU/L (10-49); ALBUMIN 4.2 g/dL (3.2-4.8); ASPARTATE AMINOTRANSFERASE 20 IU/L (<34); BILIRUBIN TOTAL 0.6 mg/dL (0.1-1.0)
[2024-02-07 02:22] LABS: BASOPHILS % 0.8 % (0.0-2.0); EOSINOPHILS % 2.4 % (0.0-5.0); HEMATOCRIT. 25.4 % (42.0-52.0); HEMOGLOBIN. 7.9 g/dL (14.0-18.0); LYMPHOCYTES % 24.7 % (20.0-50.0); MEAN CORPUSCULAR HEMOGLOBIN 24.4 pg (28.0-32.0); MEAN CORPUSCULAR HGB CONC 31.3 g/dL (31.0-37.0); MEAN CORPUSCULAR VOLUME 77.8 fL (80.0-94.0); MEAN PLATELET VOLUME 7.8 fl (7.4-10.4); MONOCYTES % 8.3 % (2.0-8.0); NEUTROPHILS % 63.8 % (40.0-76.0); PLATELET 449 x1000/uL (130-400); RED BLOOD CELL COUNT 3.26 mill/uL (4.7-6.1); RED CELL DISTRIBUTION WIDTH 22.3 % (11.6-14.6); WHITE BLOOD COUNT 7.7 x1000/uL (4.5-11.0)
[2024-02-07 02:23] LABS: TROPONIN I HIGH SENSITIVITY 123 ng/L (3.0-53)
[2024-02-07 02:29] LABS: DIFFERENTIAL COMMENT 1
[2024-02-07 03:23] LABS: INR 1.4; PROTHROMBIN TIME 14.8 sec (9.6-11.0)
[2024-02-07 04:05] LABS: TROPONIN I HIGH SENSITIVITY 119 ng/L (3.0-53)
[2024-02-07] MEDS ORDERED: DOCUSATE SODIUM 100MG CAPSULE PO PRN (05:00)
[2024-02-07] MEDS ORDERED: ONDANSETRON HCL 4MG/2ML INJ IV PRN (05:00)
[2024-02-07] MEDS ORDERED: MAGNESIUM/ALUMINUM HYDROXIDE/SIMETHICONE 30ML UDC PO PRN (05:00)
[2024-02-07] MEDS ORDERED: ACETAMINOPHEN 325MG TABLET PO PRN (05:00)
[2024-02-07] MEDS: IPRATROPIUM/ALBUTEROL 0.5-3(2.5)MG/3ML NEB HHN PRN (05:59)
[2024-02-07 06:00] VITALS: PULSE 72; RESP 20; O2SAT 99
[2024-02-07] MEDS ORDERED: DEXTROSE 50% WATER 50ML SYRINGE IV PRN (06:00)
[2024-02-07 06:28] LABS: CREATINE KINASE MB FRACTION 1.9 ng/mL (0.5-3.6)
[2024-02-07] MEDS: PANTOPRAZOLE SODIUM 40 MG/VIAL IV NR (06:50)
[2024-02-07] MEDS: IRON SUCROSE COMPLEX 100 MG/5 ML ML IV NR (06:50)
[2024-02-07] MEDS ORDERED: IOHEXOL-350 100 ML BOTTLE ONE (07:21)
[2024-02-07] MEDS: INSULIN LISPRO 100 UNITS/ML SUBCUT SCH (08:20)
[2024-02-07 08:27] LABS: CLARITY URINE CLEAR (CLEAR); COLOR URINE YELLOW (YELLOW); GLUCOSE URINE NEGATIVE (NEGATIVE); KETONES URINE NEGATIVE (NEGATIVE); LEUKOCYTE ESTERASE URINE NEGATIVE (NEGATIVE); NITRITE URINE NEGATIVE (NEGATIVE); OCCULT BLOOD URINE 2+ (NEGATIVE); PH URINE 7.5 (4.5-8.0); PROTEIN URINE NEGATIVE (NEGATIVE)
[2024-02-07 08:41] LABS: BACTERIA URINE NONE SEEN; SQUAMOUS EPITHELIAL CELL URINE RARE /lpf (RARE/1+); WBC URINE NONE SEEN /hpf (0-2); YEAST URINE NONE SEEN
[2024-02-07 08:43] LABS: *AMPHETAMINES SCREEN URINE NEGATIVE (NEGATIVE); *BARBITURATES SCREEN URINE NEGATIVE (NEGATIVE); *BENZODIAZEPINES SCREEN URINE NEGATIVE (NEGATIVE); *COCAINE SCREEN URINE NEGATIVE (NEGATIVE); METHADONE URINE SCREEN NEGATIVE (NEGATIVE)
[2024-02-07 08:44] LABS: CANNABINOID URINE SCREEN NEGATIVE (NEGATIVE); ECSTASY MDMA SCREEN URINE NEGATIVE (NEGATIVE); OPIATES URINE SCREEN NEGATIVE (NEGATIVE); PHENCYCLIDINE URINE SCREEN NEGATIVE (NEGATIVE)
[2024-02-07] MEDS: BLOOD SUGAR DIAGNOSTIC STRIP TEST SCH (09:00)
[2024-02-07] MEDS: GUAIFENESIN 200MG/10ML SUGAR FREE UDC PO PRN (10:17)
[2024-02-07] MEDS: ACETAMINOPHEN 325MG TABLET PO PRN (10:18)
[2024-02-07] MEDS: ENOXAPARIN 100MG/ML SYR SUBCUT SCH (10:19)
[2024-02-07 10:51] VITALS: BP 169/89; PULSE 99; RESP 20; TEMP 99
[2024-02-07 12:32] VITALS: BP 164/92; PULSE 63; RESP 20; TEMP 98.2
[2024-02-07 12:50] LABS: HEMATOCRIT 24.9 % (42.0-52.0)
[2024-02-07 13:16] LABS: CREATINE KINASE MB FRACTION 1.5 ng/mL (0.5-3.6)
[2024-02-07 16:00] VITALS: BP 155/90; PULSE 57; RESP 18; TEMP 98.2
[2024-02-07 19:25] LABS: CREATINE KINASE MB FRACTION 1.7 ng/mL (0.5-3.6)
[2024-02-07 20:00] VITALS: BP 150/79; PULSE 60; RESP 20; TEMP 98.1
[2024-02-08] VITALS (7 sets, daily range): BP systolic 133–164; BP diastolic 73–87; PULSE 60–70; RESP 16–20; TEMP 97.4–98.4
[2024-02-08] MEDS: CLONIDINE 0.1MG TABLET PO PRN (05:45)
[2024-02-08 07:16] LABS: CHLORIDE 108 mEq/L (98-107); POTASSIUM 3.6 mEq/L (3.5-5.1); SODIUM 138 mEq/L (136-145)
[2024-02-08 07:17] LABS: CALCIUM 8.5 mg/dL (8.7-10.4); CARBON DIOXIDE 24 mEq/L (21-32)
[2024-02-08 07:22] LABS: GLUCOSE 92 mg/dL (70-105); TRIGLYCERIDE 70 mg/dL (0-150); UREA NITROGEN BLOOD 10 mg/dL (9-23)
[2024-02-08 07:23] LABS: LDL CHOLESTEROL 40 mg/dL (5-100)
[2024-02-08 07:24] LABS: CHOLESTEROL 67 mg/dL (<200); HDL CHOLESTEROL 23 mg/dL (>55); PHOSPHORUS 3.9 mg/dL (2.5-4.9)
[2024-02-08 07:26] LABS: THYROID STIMULATING HORMONE 6.99 uIU/mL (0.55-4.78)
[2024-02-08 07:27] LABS: BASOPHILS % 0.8 % (0.0-2.0); DIFFERENTIAL COMMENT 0; HEMATOCRIT. 23.9 % (42.0-52.0); HEMOGLOBIN. 7.6 g/dL (14.0-18.0); LYMPHOCYTES % 30.1 % (20.0-50.0); MEAN CORPUSCULAR HEMOGLOBIN 24.9 pg (28.0-32.0); MEAN CORPUSCULAR HGB CONC 31.7 g/dL (31.0-37.0); MEAN CORPUSCULAR VOLUME 78.6 fL (80.0-94.0); MEAN PLATELET VOLUME 7.9 fl (7.4-10.4); MONOCYTES % 7.3 % (2.0-8.0); NEUTROPHILS % 57.8 % (40.0-76.0); PLATELET 427 x1000/uL (130-400); RED BLOOD CELL COUNT 3.04 mill/uL (4.7-6.1); RED CELL DISTRIBUTION WIDTH 21.9 % (11.6-14.6)
[2024-02-08] MEDS ORDERED: IOHEXOL-350 100 ML BOTTLE ONE (15:21)
[2024-02-08] MEDS ORDERED: HEPARIN 25,000 UNITS PREMIX 250 ML IV PRN (19:00)
[2024-02-08] MEDS: CARVEDILOL 3.125 MG TABLET PO SCH (21:07)
[2024-02-08] MEDS: ATORVASTATIN CALCIUM 40MG TABLET PO SCH (21:07)
[2024-02-08 21:32] LABS: INR 1.3; PARTIAL THROMBOPLASTIN TIME 37.3 sec (23.4-31.0)
[2024-02-09 00:18] VITALS: BP 125/73; PULSE 62; RESP 19; TEMP 97.5
[2024-02-09] MEDS: HEPARIN 25,000 UNITS PREMIX 250 ML IV SCH (00:48)
[2024-02-09 04:00] VITALS: BP 136/76; PULSE 58; RESP 19; TEMP 97.3
[2024-02-09] MEDS ORDERED: HEPARIN BOLUS PRN aPTT 37-44 IV (04:00)
[2024-02-09] MEDS ORDERED: HEPARIN BOLUS PRN aPTT <36 IV (04:00)
[2024-02-09 04:45] LABS: EOSINOPHILS % 4.6 % (0.0-5.0); HEMATOCRIT. 24.1 % (42.0-52.0); HEMOGLOBIN. 7.7 g/dL (14.0-18.0); LYMPHOCYTES % 27.4 % (20.0-50.0); MEAN CORPUSCULAR HGB CONC 32.1 g/dL (31.0-37.0); MONOCYTES % 7.7 % (2.0-8.0); NEUTROPHILS % 59.3 % (40.0-76.0); PLATELET 399 x1000/uL (130-400); RED BLOOD CELL COUNT 3.08 mill/uL (4.7-6.1); RED CELL DISTRIBUTION WIDTH 22.7 % (11.6-14.6)
[2024-02-09 04:53] LABS: CALCIUM 8.5 mg/dL (8.7-10.4); CHLORIDE 108 mEq/L (98-107); POTASSIUM 3.7 mEq/L (3.5-5.1); SODIUM 139 mEq/L (136-145)
[2024-02-09 04:54] LABS: CARBON DIOXIDE 24 mEq/L (21-32)
[2024-02-09 04:59] LABS: CREATININE 0.9 mg/dL (0.6-1.3); GLUCOSE 98 mg/dL (70-105); IRON 24 ug/dL (65-175); UREA NITROGEN BLOOD 8 mg/dL (9-23)
[2024-02-09 05:01] LABS: TOTAL IRON BINDING CAPACITY 256 ug/dl (250-425)
[2024-02-09 05:02] LABS: FERRITIN 59 ng/mL (22-322); FOLIC ACID (FOLATE) SERUM 11.76 ng/mL (>5.38)
[2024-02-09 05:03] LABS: VITAMIN B12 SERUM 610 pg/mL (211-911)
[2024-02-09 06:30] LABS: DIFFERENTIAL COMMENT 1
[2024-02-09 06:31] LABS: ADD RBC MORPHOLOGY YES
[2024-02-09 08:00] VITALS: BP 161/77; PULSE 59; RESP 20; TEMP 98
[2024-02-09 09:01] LABS: ANISOCYTOSIS 2+; MICROCYTOSIS 1+; PLATELET ESTIMATE NORMAL
[2024-02-09 12:00] VITALS: BP 146/83; PULSE 62; RESP 22; TEMP 97.9
[2024-02-09 16:00] VITALS: BP 144/77; PULSE 60; RESP 18; TEMP 97.4
[2024-02-09 20:00] VITALS: BP 130/85; PULSE 58; RESP 18; TEMP 97.9
[2024-02-10] VITALS: BP 127/71; PULSE 57; RESP 18; TEMP 97.7
[2024-02-10 04:00] VITALS: BP 142/71; PULSE 58; RESP 18; TEMP 98.1
[2024-02-10 08:00] VITALS: BP 158/90; PULSE 56; RESP 18; TEMP 98.4
[2024-02-10 09:40] LABS: BASOPHILS % 0.7 % (0.0-2.0); EOSINOPHILS % 4.7 % (0.0-5.0); HEMATOCRIT. 24.9 % (42.0-52.0); HEMOGLOBIN. 7.7 g/dL (14.0-18.0); LYMPHOCYTES % 28.7 % (20.0-50.0); MEAN CORPUSCULAR HEMOGLOBIN 24.9 pg (28.0-32.0); MEAN CORPUSCULAR HGB CONC 30.8 g/dL (31.0-37.0); MEAN CORPUSCULAR VOLUME 80.9 fL (80.0-94.0); MEAN PLATELET VOLUME 7.9 fl (7.4-10.4); NEUTROPHILS % 57.9 % (40.0-76.0); PLATELET 379 x1000/uL (130-400); RED BLOOD CELL COUNT 3.08 mill/uL (4.7-6.1); RED CELL DISTRIBUTION WIDTH 23.2 % (11.6-14.6); WHITE BLOOD COUNT 5.7 x1000/uL (4.5-11.0)
[2024-02-10 09:41] LABS: DIFFERENTIAL COMMENT 1
[2024-02-10 09:49] LABS: CHLORIDE 107 mEq/L (98-107); POTASSIUM 3.7 mEq/L (3.5-5.1); SODIUM 137 mEq/L (136-145)
[2024-02-10 09:50] LABS: CALCIUM 8.8 mg/dL (8.7-10.4); CARBON DIOXIDE 23 mEq/L (21-32)
[2024-02-10 09:55] LABS: CREATININE 0.9 mg/dL (0.6-1.3); GLUCOSE 91 mg/dL (70-105); UREA NITROGEN BLOOD 9 mg/dL (9-23)
[2024-02-10 09:57] LABS: PHOSPHORUS 4.1 mg/dL (2.5-4.9)
[2024-02-10 12:00] VITALS: BP 154/85; PULSE 59; RESP 18; TEMP 98.4
[2024-02-10 16:00] VITALS: BP 156/86; PULSE 58; RESP 18; TEMP 98.4
[2024-02-10 20:00] VITALS: BP 152/80; PULSE 61; RESP 20; TEMP 99.5
[2024-02-11] VITALS: BP 170/83; PULSE 60; RESP 18; TEMP 98.4
[2024-02-11 04:00] VITALS: BP 145/76; PULSE 59; RESP 20; TEMP 98.1
[2024-02-11] MEDS: SODIUM CHLORIDE 0.9% 1,000 ML IV SCH (04:28)
[2024-02-11 07:42] LABS: CHLORIDE 107 mEq/L (98-107); POTASSIUM 3.8 mEq/L (3.5-5.1); SODIUM 137 mEq/L (136-145)
[2024-02-11 07:43] LABS: CALCIUM 8.8 mg/dL (8.7-10.4); CARBON DIOXIDE 23 mEq/L (21-32)
[2024-02-11 07:48] LABS: GLUCOSE 95 mg/dL (70-105)
[2024-02-11 07:49] LABS: UREA NITROGEN BLOOD 8 mg/dL (9-23)
[2024-02-11 07:54] LABS: BASOPHILS % 0.5 % (0.0-2.0); EOSINOPHILS % 3.3 % (0.0-5.0); HEMATOCRIT. 24.8 % (42.0-52.0); HEMOGLOBIN. 7.9 g/dL (14.0-18.0); LYMPHOCYTES % 23.2 % (20.0-50.0); MEAN CORPUSCULAR HEMOGLOBIN 25.1 pg (28.0-32.0); MEAN CORPUSCULAR HGB CONC 31.8 g/dL (31.0-37.0); MEAN CORPUSCULAR VOLUME 78.9 fL (80.0-94.0); MONOCYTES % 6.6 % (2.0-8.0); NEUTROPHILS % 66.4 % (40.0-76.0); PLATELET 306 x1000/uL (130-400); RED BLOOD CELL COUNT 3.15 mill/uL (4.7-6.1); RED CELL DISTRIBUTION WIDTH 23.3 % (11.6-14.6); WHITE BLOOD COUNT 5.9 x1000/uL (4.5-11.0)
[2024-02-11 08:00] VITALS: BP 149/75; PULSE 61; RESP 22; TEMP 98.1
[2024-02-11] MEDS: CEFAZOLIN 2GM/100ML 100 ML IV SCH (08:54)
[2024-02-11] MEDS: FAMOTIDINE 20MG/2ML VIAL IV SCH (08:55)
[2024-02-11] MEDS ORDERED: IODIXANOL 320MG/ML 100 ML BOTTLE IV ONE ×3 (09:14→12:22)
[2024-02-11] MEDS ORDERED: LIDOCAINE HCL 1% 20ML VIAL (Pyxis) INJ ONE (09:14)
[2024-02-11] MEDS ORDERED: HEPARIN 1000 UNITS/ML 10ML ONE ×2 (09:14→11:09)
[2024-02-11 09:18] LABS: DIFFERENTIAL COMMENT 1
[2024-02-11] MEDS ORDERED: MIDAZOLAM HCL 2 MG/2 ML VIAL ONE ×2 (09:58→12:01)
[2024-02-11] MEDS ORDERED: FENTANYL CITRATE/PF 50MCG/ML 2ML VIAL ONE ×2 (09:58→12:01)
[2024-02-11] MEDS ORDERED: DIPHENHYDRAMINE 50MG/ML VIAL ONE (10:08)
[2024-02-11 15:00] VITALS: PULSE 71; RESP 22
[2024-02-11 16:00] VITALS: BP 163/81; PULSE 62; RESP 22; TEMP 98.4
[2024-02-11] MEDS ORDERED: NALOXONE HCL 0.4MG/ML VIAL IV PRN (17:15)
[2024-02-11] MEDS ORDERED: HYDROCODONE/ACETAMINOPHEN 5/325MG TABLET PO PRN (17:15)
[2024-02-11 20:43] VITALS: BP 143/78; PULSE 61; RESP 16; TEMP 97.8
[2024-02-11] MEDS: LORATADINE 10MG TABLET PO NR (21:42)
[2024-02-12] VITALS: BP 130/72; PULSE 62; RESP 16; TEMP 97.3
[2024-02-12 04:00] VITALS: BP 139/51; PULSE 62; RESP 19; TEMP 97.5
[2024-02-12 07:58] LABS: CALCIUM 8.5 mg/dL (8.7-10.4); CARBON DIOXIDE 22 mEq/L (21-32); CHLORIDE 107 mEq/L (98-107); POTASSIUM 3.7 mEq/L (3.5-5.1); SODIUM 138 mEq/L (136-145)
[2024-02-12 08:00] VITALS: BP_SYST 112; BP_SYST 129; BP_DIAS 69; PULSE 49; PULSE 60; RESP 18; TEMP 96.8; TEMP 98.6
[2024-02-12 08:03] LABS: GLUCOSE 96 mg/dL (70-105)
[2024-02-12 08:05] LABS: UREA NITROGEN BLOOD 13 mg/dL (9-23)
[2024-02-12 08:07] LABS: PHOSPHORUS 3.6 mg/dL (2.5-4.9)
[2024-02-12 09:05] LABS: BASOPHILS % 0.9 % (0.0-2.0); EOSINOPHILS % 1.4 % (0.0-5.0); HEMATOCRIT. 22.8 % (42.0-52.0); HEMOGLOBIN. 7.4 g/dL (14.0-18.0); LYMPHOCYTES % 26.5 % (20.0-50.0); MEAN CORPUSCULAR HEMOGLOBIN 25.4 pg (28.0-32.0); MEAN CORPUSCULAR HGB CONC 32.4 g/dL (31.0-37.0); MEAN CORPUSCULAR VOLUME 78.4 fL (80.0-94.0); MEAN PLATELET VOLUME 7.7 fl (7.4-10.4); MONOCYTES % 8.9 % (2.0-8.0); NEUTROPHILS % 62.3 % (40.0-76.0); PLATELET 97 x1000/uL (130-400); RED BLOOD CELL COUNT 2.91 mill/uL (4.7-6.1); RED CELL DISTRIBUTION WIDTH 23.1 % (11.6-14.6); WHITE BLOOD COUNT 5.3 x1000/uL (4.5-11.0)
[2024-02-12 09:10] LABS: DIFFERENTIAL COMMENT 1
[2024-02-12 09:13] LABS: ADD RBC MORPHOLOGY NO
[2024-02-12] MEDS: ENOXAPARIN 100MG/ML SYR SUBCUT SCH (11:00)
[2024-02-12] MEDS ORDERED: LIP40 PO (13:48)
[2024-02-12] MEDS ORDERED: COR3 PO (13:48)
[2024-02-12] MEDS ORDERED: ENOX40SY27 SQ (13:48)
[2024-02-12 14:05] VITALS: BP 129/69; PULSE 60; TEMP 98.6; O2SAT 95
== END 2024-02-12 16:40 | disposition home health service (06) | DRG 270 ==
LOC: ER 01:28 → 7WST 04:42
PROVIDERS: ADMIT Internal Medicine; ATTEND Internal Medicine
PROC: 047D3DZ Dilation of Left Common Iliac Artery with Intraluminal Device, Percutaneous Approach (ICD-10-PCS; principal; 2024-02-11)
PROC: 06CD3ZZ Extirpation of Matter from Left Common Iliac Vein, Percutaneous Approach (ICD-10-PCS; 2024-02-11)
PROC: 06CG3ZZ Extirpation of Matter from Left External Iliac Vein, Percutaneous Approach (ICD-10-PCS; 2024-02-11)
PROC: B5191ZZ Fluoroscopy of Inferior Vena Cava using Low Osmolar Contrast (ICD-10-PCS; 2024-02-11)
PROC: B51C1ZZ Fluoroscopy of Left Lower Extremity Veins using Low Osmolar Contrast (ICD-10-PCS; 2024-02-11)
PROC: B44GZZ3 Ultrasonography of Left Lower Extremity Arteries, Intravascular (ICD-10-PCS; 2024-02-11)
DX: I82.412 Acute embolism and thrombosis of left femoral vein (principal); I21.A1 Myocardial infarction type 2; I26.99 Other pulmonary embolism without acute cor pulmonale; I50.42 Chronic combined systolic (congestive) and diastolic (congestive) heart failure; I87.1 Compression of vein; I82.432 Acute embolism and thrombosis of left popliteal vein; I11.0 Hypertensive heart disease with heart failure; E11.9 Type 2 diabetes mellitus without complications; Z20.822 Contact with and (suspected) exposure to COVID-19; E78.00 Pure hypercholesterolemia, unspecified; I25.10 Atherosclerotic heart disease of native coronary artery without angina pectoris; I45.10 Unspecified right bundle-branch block; K44.9 Diaphragmatic hernia without obstruction or gangrene; Z86.718 Personal history of other venous thrombosis and embolism; Z95.1 Presence of aortocoronary bypass graft; D50.0 Iron deficiency anemia secondary to blood loss (chronic); Z79.01 Long term (current) use of anticoagulants; Z79.02 Long term (current) use of antithrombotics/antiplatelets; Z79.4 Long term (current) use of insulin; Z79.899 Other long term (current) drug therapy
CPT/HCPCS: 36415; 37187; 37238; 37252; 71045; 71275; 74174; 75820; 75825; 80048; 80053; 80061; 80305; 81003; 82270; 82550; 82553; 82607; 82728; 82746; 82962; 83036; 83540; 83550; 83605; 83735; 83880; 84100; 84145; 84436; 84443; 84484; 85014; 85018; 85025; 85347; 86850; 86900; 87426; 87804; 93005; 93308; 93970; 94640; 99291; C1725; C1753; C1769; C1893; C1894; C9113; J0690; J1200; J1644; J1650; J1815; J2250; J3010; J3490; J7030; Q9967; C1876

== ENCOUNTER → 2024-03-15 | Outpatient (CLI) | payer MEDICARE, MEDICAID ==
[~2024-03-15] MED LIST changes: -AMI2 MT; -APIX5TAB MT; -ASPI-1160 PO; -CLOP-31 PO; +COR3 PO; +ENOX40SY27 SQ; -MIDO5TAB4 PO
== END | disposition home or self-care (01) ==
LOC: RAD 13:50
PROVIDERS: ATTEND Internal Medicine Critical Care Medicine
DX: J90 Pleural effusion, not elsewhere classified (principal); I51.7 Cardiomegaly; K44.9 Diaphragmatic hernia without obstruction or gangrene; Z95.1 Presence of aortocoronary bypass graft; Z98.890 Other specified postprocedural states
CPT/HCPCS: 71046

== ENCOUNTER → 2024-04-07 | Outpatient (CLI) | payer MEDICARE, MEDICAID | END | disposition home or self-care (01) | LOC: US 08:43 | PROVIDERS: ATTEND Internal Medicine Hematology & Oncology | DX: D50.0 Iron deficiency anemia secondary to blood loss (chronic) (principal); Z86.718 Personal history of other venous thrombosis and embolism | CPT/HCPCS: 93971 ==

== ENCOUNTER → 2024-05-20 | Outpatient (CLI) | payer MEDICARE, MEDICAID ==
[~2024-05-20] MED LIST changes: -SENN-257 MT; +SENN-362 MT
== END | disposition home or self-care (01) ==
LOC: CT 09:33
PROVIDERS: ATTEND Internal Medicine Critical Care Medicine
DX: K44.9 Diaphragmatic hernia without obstruction or gangrene (principal); R18.8 Other ascites; J90 Pleural effusion, not elsewhere classified; I51.7 Cardiomegaly
CPT/HCPCS: 71045; 71250; 74150

== ENCOUNTER 2024-05-27 20:18 | Emergency (ER) | payer MEDICARE, MEDICAID ==
[~2024-05-27] VITALS: Ht 167.6 cm; Wt 95.2 kg
[2024-05-27 20:31] VITALS: TEMP 98.6; O2SAT 98
[2024-05-27 22:49] LABS: BASOPHILS % 1.5 % (0.0-2.0); EOSINOPHILS % 4.6 % (0.0-5.0); HEMATOCRIT. 37.6 % (42.0-52.0); MEAN CORPUSCULAR HEMOGLOBIN 27.4 pg (28.0-32.0); MEAN CORPUSCULAR HGB CONC 31.8 g/dL (31.0-37.0); MEAN CORPUSCULAR VOLUME 86.2 fL (80.0-94.0); MEAN PLATELET VOLUME 8.2 fl (7.4-10.4); MONOCYTES % 9.6 % (2.0-8.0); NEUTROPHILS % 56.3 % (40.0-76.0); PLATELET 269 x1000/uL (130-400); RED BLOOD CELL COUNT 4.36 mill/uL (4.7-6.1); RED CELL DISTRIBUTION WIDTH 17.8 % (11.6-14.6); WHITE BLOOD COUNT 6.5 x1000/uL (4.5-11.0)
[2024-05-27 23:11] LABS: CHLORIDE 107 mEq/L (98-107); SODIUM 140 mEq/L (136-145)
[2024-05-27 23:12] LABS: CARBON DIOXIDE 25 mEq/L (21-32)
[2024-05-27 23:17] LABS: CREATININE 0.9 mg/dL (0.6-1.3); GLUCOSE 112 mg/dL (70-105); UREA NITROGEN BLOOD 16 mg/dL (9-23)
[2024-05-27 23:19] LABS: TROPONIN I HIGH SENSITIVITY 48 ng/L (3.0-53)
[2024-05-28 01:19] VITALS: BP 142/97; PULSE 73; RESP 13
== END 2024-05-28 01:19 | disposition home or self-care (01) ==
LOC: ER 20:18
DX: R05.9 Cough, unspecified (principal); I11.0 Hypertensive heart disease with heart failure; I50.9 Heart failure, unspecified; E78.00 Pure hypercholesterolemia, unspecified
CPT/HCPCS: 36415; 71045; 80048; 83880; 84484; 85025; 93005; 99285